=== PATIENT | male | born 1990 | race Caucasian/White ===

== ENCOUNTER 2017-01-28 20:04 | Emergency (ER) | payer SELFPAY ==
[2017-01-28 21:25] VITALS: BP 120/74; PULSE 74; RESP 16; TEMP 97.5; O2SAT 97
== END 2017-01-28 21:12 | disposition home or self-care (01) | DRG 563 ==
LOC: ED 20:04
DX: S43.402A Unspecified sprain of left shoulder joint, initial encounter (principal); W50.0XXA Accidental hit or strike by another person, initial encounter
CPT/HCPCS: 73030; 99282

== ENCOUNTER 2017-02-23 20:28 | Emergency (ER) | payer OTHER ==
[2017-02-23 21:36] LABS: BASOPHILS % (AUTO) 1 % (0-3); EOSINOPHILS % (AUTO) 1 % (0-9); HEMATOCRIT 45 % (39-53); MEAN CORPUSCULAR HGB CONC 34.1 gm/dl (32.0-36.0); MEAN CORPUSCULAR VOLUME 90 fL (80-100); MONOCYTES % (AUTO) 9.3 % (0-12); NEUTROPHILS % (AUTO) 49.9 % (37-80)
[2017-02-23 21:41] LABS: APPEARANCE,URINE Clear; BILIRUBIN,URINE NEGATIVE (NEGATIVE); COLOR,URINE Yellow; GLUCOSE, URINE (UA) NEGATIVE (NEGATIVE); KETONES,URINE NEGATIVE (NEGATIVE); LEUKOCYTE ESTERASE ,URINE NEGATIVE (NEGATIVE); NITRATE,URINE NEGATIVE (NEGATIVE); OCCULT BLOOD,URINE NEGATIVE (NEG-TRACE); PH,URINE 5.5; UROBILINOGEN,URINE 0.2 (0.2-1.0 EU)
[2017-02-23 21:48] LABS: AMPHETAMINES NEGATIVE (NEGATIVE); METHADONE NEGATIVE (NEGATIVE); OPIATES(OP13) NEGATIVE (NEGATIVE); OXYCODONE(OXY) NEGATIVE (NEGATIVE); PROPOXYPHENE(PPX) NEGATIVE (NEGATIVE); RBC,URINE NEG (0-3AV/HPF); TRICYCLIC ANTIDEPRESSANTS NEGATIVE (NEGATIVE); WBC,URINE NEG (0-5AV/HPF)
[2017-02-23 21:59] VITALS: TEMP 98.1
[2017-02-23 22:04] LABS: ALT 16 IU/L (14-63); BILIRUBIN,DIRECT 0.1 mg/dl (0.0-0.2); CALCIUM 8.3 mg/dl (8.5-10.1); GLOM FILT RATE 82 mL/min (>60); POTASSIUM 3.2 mMol/L (3.5-5.1); SODIUM 142 mMol/L (136-145); THYROID STIMULATING HORMONE 4.907 uIU/ml (0.358-3.740)
[2017-02-23] MEDS ORDERED: SODIUM CHLORIDE/KCL 20MEQ 1,000 ML IV ONE (22:10)
[2017-02-23] MEDS ORDERED: KCL IV ONE (22:21)
[2017-02-23] MEDS ORDERED: SODIUM CHLORIDE IV ONE (22:21)
[2017-02-23] MEDS ORDERED: POTASSIUM CHLORIDE 10 MEQ TER ONE (22:28)
[2017-02-23] MEDS ORDERED: POTASSIUM CHLORIDE 10 MEQ TER PO ONE (22:45)
[2017-02-23 23:30] VITALS: BP 108/74; PULSE 85; RESP 16; O2SAT 98
== END 2017-02-23 22:55 | disposition home or self-care (01) | DRG 918 ==
LOC: ED 20:28
DX: T43.591A Poisoning by other antipsychotics and neuroleptics, accidental (unintentional), initial encounter (principal); F33.2 Major depressive disorder, recurrent severe without psychotic features; R45.851 Suicidal ideations; F10.10 Alcohol abuse, uncomplicated; Y90.6 Blood alcohol level of 120-199 mg/100 ml; E87.6 Hypokalemia; G89.29 Other chronic pain
CPT/HCPCS: 36415; 71046; 80048; 80076; 80305; 80307; 81001; 84443; 85025; 99285

== ENCOUNTER 2017-03-03 19:56 | Emergency (ER) | payer OTHER ==
[2017-03-03] MEDS ORDERED: LEVETIRACETAM (PREMIX) 1 GM 1 GM/100 ML SOL IV ONE ×2 (20:02→20:06)
[2017-03-03 20:12] VITALS: TEMP 97.5
[2017-03-03 20:14] LABS: BASOPHILS % (AUTO) 2 % (0-3); EOSINOPHILS % (AUTO) 1 % (0-9); HEMATOCRIT 44 % (39-53); MEAN CORPUSCULAR HGB CONC 35.7 gm/dl (32.0-36.0); MEAN CORPUSCULAR VOLUME 90 fL (80-100); MONOCYTES % (AUTO) 16.2 % (0-12); NEUTROPHILS % (AUTO) 51.2 % (37-80)
[2017-03-03 20:24] LABS: CALCIUM 8.2 mg/dl (8.5-10.1); POTASSIUM 3.5 mMol/L (3.5-5.1)
[2017-03-03 21:06] LABS: AMPHETAMINES NEGATIVE (NEGATIVE); METHADONE NEGATIVE (NEGATIVE); OPIATES(OP13) NEGATIVE (NEGATIVE); OXYCODONE(OXY) NEGATIVE (NEGATIVE); PROPOXYPHENE(PPX) NEGATIVE (NEGATIVE); TRICYCLIC ANTIDEPRESSANTS NEGATIVE (NEGATIVE)
[2017-03-03] MEDS ORDERED: KETOROLAC TROMETHAMINE 30 MG/ML SOL IV ONE (21:07)
[2017-03-03] MEDS ORDERED: THIAMINE 100 MG/ML 100 MG/ML SOL IV ONE (21:07)
[2017-03-03] MEDS ORDERED: KETOROLAC TROMETHAMINE 30 MG/ML SOL ONE (21:16)
[2017-03-03] MEDS ORDERED: THIAMINE 100 MG/ML 100 MG/ML SOL ONE (21:16)
[2017-03-03 22:19] VITALS: BP 94/66; PULSE 71; RESP 22; O2SAT 98
== END 2017-03-03 22:05 | disposition home or self-care (01) | DRG 101 ==
LOC: ED 19:56
DX: R56.9 Unspecified convulsions (principal); F10.129 Alcohol abuse with intoxication, unspecified; R40.2362 Coma scale, best motor response, obeys commands, at arrival to emergency department; Y90.7 Blood alcohol level of 200-239 mg/100 ml
CPT/HCPCS: 36415; 70450; 71045; 80048; 80305; 80307; 85025; 99285; J1885; J1953

== ENCOUNTER 2017-05-13 19:16 | Emergency (ER) | payer SELFPAY ==
[2017-05-13 19:33] VITALS: RESP 20; TEMP 98.7
[2017-05-13] MEDS ORDERED: LEVETIRACETAM (PREMIX) 1 GM 1 GM/100 ML SOL IV ONE ×2 (19:37→19:51)
[2017-05-13] MEDS ORDERED: PANTOPRAZOLE SODIUM 40 MG/10 ML PDS IV ONE (19:38)
[2017-05-13] MEDS ORDERED: ACETAMINOPHEN 325 MG PO ONE (19:39)
[2017-05-13] MEDS ORDERED: SODIUM CHLORIDE 0.9% 1000ML 1,000 ML IV SCH (19:45)
[2017-05-13] MEDS ORDERED: ACETAMINOPHEN 325 MG ONE (19:52)
[2017-05-13] MEDS ORDERED: PANTOPRAZOLE SODIUM 40 MG/10 ML PDS ONE (19:52)
[2017-05-13 19:56] LABS: BASOPHILS % (AUTO) 0 % (0-3); EOSINOPHILS % (AUTO) 0 % (0-9); HEMATOCRIT 44 % (39-53); MEAN CORPUSCULAR VOLUME 91 fL (80-100); MONOCYTES % (AUTO) 8.4 % (0-12); NEUTROPHILS % (AUTO) 62.8 % (37-80)
[2017-05-13 20:19] LABS: ALBUMIN 4.1 gm/dl (3.4-5.0); CALCIUM 8.7 mg/dl (8.5-10.1); POTASSIUM 3.6 mMol/L (3.5-5.1)
[2017-05-13 21:07] LABS: AMPHETAMINES NEGATIVE (NEGATIVE); METHADONE NEGATIVE (NEGATIVE); OPIATES(OP13) NEGATIVE (NEGATIVE); OXYCODONE(OXY) NEGATIVE (NEGATIVE); PROPOXYPHENE(PPX) NEGATIVE (NEGATIVE); TRICYCLIC ANTIDEPRESSANTS NEGATIVE (NEGATIVE)
[2017-05-13] MEDS: FENTANYL 100MCG/2ML SOL IV ONE ×2 (21:41→21:52)
[2017-05-13] MEDS ORDERED: FENTANYL 100MCG/2ML SOL ONE (21:45)
[2017-05-13] MEDS ORDERED: FENTANYL 100MCG/2ML SOL IV ONE (21:45)
[2017-05-13 22:17] VITALS: PULSE 69; O2SAT 98
[2017-05-13] MEDS ORDERED: SODIUM CHLORIDE 0.9% 1000ML 1,000 ML IV ONE (22:19)
[2017-05-13] MEDS ORDERED: HYDROMORPHONE HCL 2 MG/ML SOL IV ONE (22:42)
[2017-05-13 22:46] VITALS: BP 104/62
[2017-05-13] MEDS ORDERED: HYDROMORPHONE HCL 2 MG/ML SOL ONE (22:49)
== END 2017-05-13 23:26 | disposition short-term general hospital (02) | DRG 379 ==
LOC: ED 19:16
DX: K92.2 Gastrointestinal hemorrhage, unspecified (principal); R56.9 Unspecified convulsions
CPT/HCPCS: 36415; 70450; 74177; 80053; 80305; 80307; 85025; 85610; 99285; J1170; J3010; Q9967; J1953

== ENCOUNTER 2017-05-18 19:57 | Emergency (ER) | payer SELFPAY ==
[2017-05-18] MEDS ORDERED: PANTOPRAZOLE SODIUM 40 MG ECT PO ONE ×2 (20:49→21:07)
[2017-05-18] MEDS ORDERED: ONDANSETRON 4 MG ODT BU ONE (20:49)
[2017-05-18 20:52] VITALS: RESP 18; TEMP 97.6
[2017-05-18] MEDS ORDERED: LEVETIRACETAM 250 MG TAB PO SCH (21:00)
[2017-05-18] MEDS ORDERED: ONDANSETRON 4 MG ODT ONE (21:07)
[2017-05-18] MEDS ORDERED: LEVETIRACETAM 250 MG TAB ONE (21:08)
[2017-05-18 21:11] LABS: BILIRUBIN,DIRECT 0.1 mg/dl (0.0-0.2); CALCIUM 8.8 mg/dl (8.5-10.1); POTASSIUM 3.4 mMol/L (3.5-5.1)
[2017-05-18] MEDS ORDERED: POTASSIUM CHLORIDE 10 MEQ TER PO ONE (21:44)
[2017-05-18 22:12] LABS: BASOPHILS % (AUTO) 1 % (0-3); EOSINOPHILS % (AUTO) 1 % (0-9); HEMATOCRIT 43 % (39-53); MEAN CORPUSCULAR HGB CONC 35.1 gm/dl (32.0-36.0); MEAN CORPUSCULAR VOLUME 92 fL (80-100); MONOCYTES % (AUTO) 9.8 % (0-12); NEUTROPHILS % (AUTO) 54.9 % (37-80)
[2017-05-18] MEDS ORDERED: POTASSIUM CHLORIDE 10 MEQ TER ONE (22:25)
[2017-05-18 23:22] VITALS: BP 100/62; PULSE 64; O2SAT 96
== END 2017-05-18 22:40 | disposition home or self-care (01) | DRG 101 ==
LOC: ED 19:57
DX: R56.9 Unspecified convulsions (principal); S09.90XA Unspecified injury of head, initial encounter; R11.10 Vomiting, unspecified; E87.6 Hypokalemia; W18.39XA Other fall on same level, initial encounter; Y93.E1 Activity, personal bathing and showering
CPT/HCPCS: 36415; 70450; 80048; 80076; 82150; 85025; 99284; A9270-GY

== ENCOUNTER 2017-05-20 20:46 | Emergency (ER) | payer MEDICAID ==
[2017-05-20 20:57] VITALS: RESP 20; TEMP 98.1
[2017-05-20 21:11] VITALS: O2SAT 98
[2017-05-20] MEDS ORDERED: ACETAMINOPHEN 500 MG 500 MG TAB PO ONE (21:55)
[2017-05-20] MEDS ORDERED: LEVETIRACETAM 250 MG TAB PO ONE (21:57)
[2017-05-20] MEDS ORDERED: PANTOPRAZOLE SODIUM 40 MG/10 ML PDS IV ONE (21:57)
[2017-05-20 22:02] LABS: BASOPHILS % (AUTO) 1 % (0-3); EOSINOPHILS % (AUTO) 1 % (0-9); HEMATOCRIT 44 % (39-53); HEMOGLOBIN 15.7 gm/dl (13.5-17.7); LYMPHOCYTES % (AUTO) 36.5 % (10-50); MEAN CORPUSCULAR HEMOGLOBIN 32.1 pg (27.0-32.0); MEAN CORPUSCULAR HGB CONC 35.4 gm/dl (32.0-36.0); MEAN CORPUSCULAR VOLUME 91 fL (80-100); MONOCYTES % (AUTO) 8.5 % (0-12); NEUTROPHILS % (AUTO) 53.1 % (37-80)
[2017-05-20] MEDS ORDERED: PANTOPRAZOLE SODIUM 40 MG/10 ML PDS ONE (22:02)
[2017-05-20] MEDS ORDERED: ACETAMINOPHEN 500 MG 500 MG TAB ONE (22:02)
[2017-05-20] MEDS ORDERED: LEVETIRACETAM 250 MG TAB ONE (22:04)
[2017-05-20 22:11] LABS: CALCIUM 8.9 mg/dl (8.5-10.1); CARBON DIOXIDE 26.3 mEq/L (21-32); CREATININE 0.96 mg/dl (0.80-1.30); POTASSIUM 3.4 mMol/L (3.5-5.1)
[2017-05-20] MEDS ORDERED: LORAZEPAM 2 MG/ML SOL IV ONE (22:28)
[2017-05-20] MEDS ORDERED: LORAZEPAM 2 MG/ML SOL ONE (22:29)
[2017-05-20 22:35] VITALS: BP 114/69; PULSE 84
== END 2017-05-20 22:51 | disposition home or self-care (01) | DRG 101 ==
LOC: ED 20:46
DX: G40.909 Epilepsy, unspecified, not intractable, without status epilepticus (principal); K92.0 Hematemesis; H57.10 Ocular pain, unspecified eye
CPT/HCPCS: 36415; 80048; 85025; 96374; 96375; 99282; 99284; J2060; A9270-GY

== ENCOUNTER 2017-06-13 17:59 | Inpatient (IN) | payer MEDICAID ==
[2017-06-13 18:28] LABS: BASOPHILS % (AUTO) 1 % (0-3); EOSINOPHILS % (AUTO) 1 % (0-9); HEMATOCRIT 44 % (39-53); HEMOGLOBIN 15.3 gm/dl (13.5-17.7); LYMPHOCYTES % (AUTO) 32.4 % (10-50); MEAN CORPUSCULAR HGB CONC 35.1 gm/dl (32.0-36.0); MEAN CORPUSCULAR VOLUME 91 fL (80-100); MONOCYTES % (AUTO) 9.4 % (0-12); NEUTROPHILS % (AUTO) 56.9 % (37-80)
[2017-06-13] MEDS ORDERED: ONDANSETRON HCL 4 MG/2 ML SOL IV ONE (18:32)
[2017-06-13] MEDS ORDERED: PANTOPRAZOLE SODIUM 40 MG/10 ML PDS IV ONE (18:32)
[2017-06-13] MEDS: SODIUM CHLORIDE 0.9% FLUSH 10 ML SOL IV PRN ×2 (18:35→19:15)
[2017-06-13 18:40] LABS: INR 0.97 (0.86-1.12)
[2017-06-13] MEDS ORDERED: SODIUM CHLORIDE 0.9% 1000ML 1,000 ML IV SCH (18:45)
[2017-06-13 18:46] LABS: ALBUMIN 3.9 gm/dl (3.4-5.0); BILIRUBIN,TOTAL 0.3 mg/dl (0.2-1.0); CALCIUM 8.1 mg/dl (8.5-10.1); CARBON DIOXIDE 25.2 mEq/L (21-32); CREATININE 0.89 mg/dl (0.80-1.30); POTASSIUM 3.7 mMol/L (3.5-5.1); TOTAL PROTEIN 7.2 gm/dl (6.4-8.2)
[2017-06-13 18:48] LABS: AMYLASE 64 IU/L (25-115)
[2017-06-13] MEDS ORDERED: LEVETIRACETAM (PREMIX) 1 GM 1 GM/100 ML SOL IV ONE ×2 (18:48→18:51)
[2017-06-13] MEDS ORDERED: MORPHINE SULFATE 10 MG/ML SOL IV ONE ×2 (18:48→19:29)
[2017-06-13] MEDS ORDERED: MORPHINE SULFATE 10 MG/ML SOL ONE ×2 (18:51→19:32)
[2017-06-13] MEDS ORDERED: ONDANSETRON HCL 4 MG/2 ML SOL ONE (19:07)
[2017-06-13] MEDS ORDERED: PANTOPRAZOLE SODIUM 40 MG/10 ML PDS ONE (19:10)
[2017-06-13 19:47] LABS: APPEARANCE,URINE Clear; BILIRUBIN,URINE NEGATIVE (NEGATIVE); GLUCOSE, URINE (UA) NEGATIVE (NEGATIVE); KETONES,URINE NEGATIVE (NEGATIVE); LEUKOCYTE ESTERASE ,URINE NEGATIVE (NEGATIVE); NITRATE,URINE NEGATIVE (NEGATIVE); OCCULT BLOOD,URINE NEGATIVE (NEG-TRACE); PH,URINE 6.5; UROBILINOGEN,URINE 0.2 (0.2-1.0 EU)
[2017-06-13 19:58] LABS: COLOR,URINE CLEAR
[2017-06-13 19:59] LABS: AMPHETAMINES NEGATIVE (NEGATIVE); BACTERIA RARE (< 1+); BARBITUATES NEGATIVE (NEGATIVE); BENZODIAZEPINES NEGATIVE (NEGATIVE); CANNABINOL(THC) NEGATIVE (NEGATIVE); COCAINE(COC) NEGATIVE (NEGATIVE); CRYSTALS NEGATIVE (0-3 AVE/HPF); EPITHELIAL CELLS NEGATIVE (SQUAMOUS); METHADONE NEGATIVE (NEGATIVE); METHAMPHETAMINES NEGATIVE (NEGATIVE); OPIATES(OP13) NEGATIVE (NEGATIVE); OXYCODONE(OXY) NEGATIVE (NEGATIVE); PROPOXYPHENE(PPX) NEGATIVE (NEGATIVE); RBC,URINE NEGATIVE (0-3AV/HPF); TRICYCLIC ANTIDEPRESSANTS NEGATIVE (NEGATIVE); WBC,URINE NEGATIVE (0-5AV/HPF)
[2017-06-13] MEDS ORDERED: ACETAMINOPHEN 500 MG 500 MG TAB PO ONE (19:59)
[2017-06-13] MEDS ORDERED: ACETAMINOPHEN 500 MG 500 MG TAB ONE (20:00)
[2017-06-13] MEDS ORDERED: APAP/HYDROCODONE 325/5 TAB PO ONE (22:18)
[2017-06-13] MEDS ORDERED: APAP/HYDROCODONE 325/5 TAB ONE (22:19)
[2017-06-14] MEDS: APAP/HYDROCODONE 325/5 TAB PO PRN ×2 (06:44→15:31)
[2017-06-14 07:38] LABS: CALCIUM 7.9 mg/dl (8.5-10.1); CARBON DIOXIDE 27.5 mEq/L (21-32); CREATININE 0.86 mg/dl (0.80-1.30); POTASSIUM 4.1 mMol/L (3.5-5.1)
[2017-06-14 08:02] LABS: BASOPHILS % (AUTO) 1 % (0-3); EOSINOPHILS % (AUTO) 2 % (0-9); HEMATOCRIT 41 % (39-53); HEMOGLOBIN 14.4 gm/dl (13.5-17.7); LYMPHOCYTES % (AUTO) 49.5 % (10-50); MEAN CORPUSCULAR HEMOGLOBIN 32.8 pg (27.0-32.0); MEAN CORPUSCULAR HGB CONC 35.4 gm/dl (32.0-36.0); MEAN CORPUSCULAR VOLUME 93 fL (80-100); MONOCYTES % (AUTO) 10.8 % (0-12); NEUTROPHILS % (AUTO) 36.4 % (37-80)
[2017-06-14] MEDS: ENOXAPARIN 40 MG SOL SC SCH (08:59)
[2017-06-14] MEDS ORDERED: OMEPRAZOLE 20 MG CAPSULE PO SCH (09:00)
[2017-06-14] MEDS: PANTOPRAZOLE SODIUM 40 MG/10 ML PDS IV SCH (09:00)
[2017-06-14] MEDS: LEVETIRACETAM 250 MG TAB PO SCH ×2 (09:00→21:14)
[2017-06-14] MEDS: SODIUM CHLORIDE 0.9% FLUSH 10 ML SOL IV PRN ×3 (09:05→19:42)
[2017-06-14] MEDS ORDERED: SODIUM CHLORIDE 0.9% 1000ML 1,000 ML IV ONE (12:06)
[2017-06-14] MEDS: ONDANSETRON HCL 4 MG/2 ML SOL IV PRN ×2 (12:25→19:41)
[2017-06-14] MEDS: MECLIZINE HYDROCHLORIDE 12.5 MG TAB PO PRN ×2 (12:28→21:15)
[2017-06-14] MEDS ORDERED: PEG ELECTROLYTE LAVAGE SOLUT 4000 ML PDS PO SCH (15:00)
[2017-06-14] MEDS ORDERED: MAGNESIUM CITRATE SOL PO PRN (17:11)
[2017-06-15 07:16] LABS: BASOPHILS % (AUTO) 1 % (0-3); EOSINOPHILS % (AUTO) 1 % (0-9); HEMATOCRIT 41 % (39-53); HEMOGLOBIN 14.1 gm/dl (13.5-17.7); LYMPHOCYTES % (AUTO) 47.6 % (10-50); MEAN CORPUSCULAR HEMOGLOBIN 32.4 pg (27.0-32.0); MEAN CORPUSCULAR HGB CONC 34.8 gm/dl (32.0-36.0); MEAN CORPUSCULAR VOLUME 93 fL (80-100); MONOCYTES % (AUTO) 7.8 % (0-12); NEUTROPHILS % (AUTO) 42.3 % (37-80)
[2017-06-15] MEDS ORDERED: PROPOFOL 500 MG/50 ML EMU IV ONE (08:55)
[2017-06-15] MEDS ORDERED: PROPOFOL 10 MG/ML EMU IV ONE (08:55)
[2017-06-15] MEDS ORDERED: FENTANYL 100MCG/2ML SOL ONE (08:55)
[2017-06-15] MEDS ORDERED: LIDOCAINE HCL 1% MPF SOL ONE (08:58)
[2017-06-15] MEDS ORDERED: SODIUM CHLORIDE 0.9% FLUSH 10 ML SOL IV ONE (09:07)
[2017-06-15 11:17] VITALS: BP 107/70; PULSE 50; RESP 18; TEMP 97.7; O2SAT 99
[2017-06-15] MEDS: LEVETIRACETAM 250 MG TAB PO SCH (11:18)
[2017-06-15] MEDS: PANTOPRAZOLE SODIUM 40 MG/10 ML PDS IV SCH (11:18)
[2017-06-15] MEDS: ENOXAPARIN 40 MG SOL SC SCH (12:39)
== END 2017-06-15 13:40 | disposition home or self-care (01) | DRG 378 ==
LOC: ED 17:59 → ACUTE CARE 22:49 → UNDOADMOB 22:49 → OBSVTOIN 23:00
PROVIDERS: ADMIT Emergency Medicine; ATTEND Family Medicine
DX: K92.2 Gastrointestinal hemorrhage, unspecified (principal); R04.2 Hemoptysis; R56.9 Unspecified convulsions; G43.909 Migraine, unspecified, not intractable, without status migrainosus
CPT/HCPCS: 36415; 71260; 74177; 80048; 80053; 80305; 81001; 82150; 85025; 85610; 85730; 93005; 99285; J1650; J2270; J2405; J3010; Q9967; A9270-GY; J1953; J2001; J2704

== ENCOUNTER 2017-06-17 21:35 | Emergency (ER) | payer MEDICAID ==
[2017-06-17 21:50] VITALS: RESP 16; TEMP 98.5
[2017-06-17] MEDS ORDERED: LEVETIRACETAM (PREMIX) 1 GM 1 GM/100 ML SOL IV ONE (21:54)
[2017-06-17] MEDS: LEVETIRACETAM (PREMIX) 1 GM 1 GM/100 ML SOL IV SCH (22:00)
[2017-06-17] MEDS: SODIUM CHLORIDE 0.9% FLUSH 10 ML SOL IV PRN (22:00)
[2017-06-17 22:04] LABS: BASOPHILS % (AUTO) 1 % (0-3); EOSINOPHILS % (AUTO) 0 % (0-9); HEMATOCRIT 43 % (39-53); HEMOGLOBIN 15.7 gm/dl (13.5-17.7); LYMPHOCYTES % (AUTO) 23.7 % (10-50); MEAN CORPUSCULAR HGB CONC 36.6 gm/dl (32.0-36.0); MEAN CORPUSCULAR VOLUME 90 fL (80-100); MONOCYTES % (AUTO) 6.6 % (0-12); NEUTROPHILS % (AUTO) 68.6 % (37-80)
[2017-06-17 22:16] LABS: ALBUMIN 3.8 gm/dl (3.4-5.0); BILIRUBIN,TOTAL 0.4 mg/dl (0.2-1.0); CALCIUM 8.2 mg/dl (8.5-10.1); CARBON DIOXIDE 23.7 mEq/L (21-32); CREATININE 0.9 mg/dl (0.80-1.30); POTASSIUM 3.2 mMol/L (3.5-5.1); TOTAL PROTEIN 7.2 gm/dl (6.4-8.2)
[2017-06-17 22:59] VITALS: BP 98/59; PULSE 68; O2SAT 96
== END 2017-06-17 22:44 | disposition home or self-care (01) | DRG 379 ==
LOC: ED 21:35
DX: K92.0 Hematemesis (principal); R56.9 Unspecified convulsions; E87.6 Hypokalemia; Z72.0 Tobacco use; R40.2362 Coma scale, best motor response, obeys commands, at arrival to emergency department; R40.2142 Coma scale, eyes open, spontaneous, at arrival to emergency department; R40.2252 Coma scale, best verbal response, oriented, at arrival to emergency department
CPT/HCPCS: 36415; 80053; 85025; 93005; 99284; 99285; J1953